=== PATIENT | female | born 1985 | race Caucasian/White ===

== ENCOUNTER 2019-09-25 04:02 | Emergency (ER) | payer OTHER, SELFPAY ==
[~2019-09-25] VITALS: Ht 167.6 cm; Wt 77.1 kg
[2019-09-25 04:04] VITALS: Ht 167.6 cm; Wt 77.1 kg
[2019-09-25 05:39] LABS: CALCIUM 8.7 mg/dL (8.5-10.1); CARBON DIOXIDE 30.4 mmol/L (21-32); CHLORIDE SERUM 102 mmol/L (98-107); CREATININE SERUM 0.9 mg/dL (0.6-1.0); GFR1 > 60 mL/min; GLUCOSE SERUM 100 mg/dL (74-106); POTASSIUM SERUM 3.9 mmol/L (3.5-5.1); SODIUM SERUM 138 mmol/L (136-145)
[2019-09-25 05:43] LABS: ALKALINE PHOSPHATASE 54 U/L (46-116); ALT/SGPT 27 U/L (14-59); AST/SGOT 17 U/L (15-37); BILIRUBIN TOTAL 0.72 mg/dL (0.20-1.00); LIPASE 86 IU/L (73-393); TOTAL PROTEIN, SERUM 7.3 g/dL (6.4-8.2)
[2019-09-25 05:46] LABS: RED CELL DISTRIBUTION WIDTH 12.3 % (11.5-14.5)
[2019-09-25 05:49] LABS: PLATELET COUNT 194 x10^3mcL (130-400)
[2019-09-25 06:51] VITALS: BP 109/73
== END 2019-09-25 06:50 | disposition home or self-care (01) ==
LOC: ED 04:02
PROVIDERS: Emergency Medicine
DX: B34.9 Viral infection, unspecified (principal); R04.0 Epistaxis; Z20.828 Contact with and (suspected) exposure to other viral communicable diseases
CPT/HCPCS: J0692; Q0092; Q0162; U0003-CS